=== PATIENT | male | born 1960 | race Caucasian/White ===

== ENCOUNTER 2018-12-12 10:39 | Inpatient (IN) | payer OTHER ==
[~2018-12-12] VITALS: Ht 188 cm; Wt 118.3 kg
[~2018-12-12 10:39] MED LIST: CLIN300 PO; GLIP10 PO; GLIP5 PO; HYDR1TAB94 PO; Humalog100 UNIT/1; Humalog100 UNIT/1 SC; INSULANPEN; INSULANPEN SC; LIRA0.6P; LISI5 PO; METF500 PO; METF500C PO; PIOG15 PO
[2018-12-12 11:20] LABS: Bicarbonate Venous 11.1 mmol/L (24.0-30.0); PCO2 Venous 15.4 mmHg (38-42); PO2 Venous 184 mmHg (38-42); pH Blood Venous 7.17 (7.34-7.37)
[2018-12-12 11:21] LABS: BASOPHILS ABSOLUTE AUTO 0.04 K/mm3 (0.00-0.23); BASOPHILS PERCENT AUTO 0 % (0-2); EOSINOPHILS ABSOLUTE AUTO 0.02 K/mm3 (0.00-0.68); EOSINOPHILS PERCENT AUTO 0 % (0-6); Hematocrit 55.8 % (37.0-53.0); Hemoglobin 18.2 g/dL (13.5-17.5); IMMATURE GRAN ABSOLUTE AUTO 0.07 K/mm3 (0.00-0.10); IMMATURE GRAN PERCENT AUTO 1 % (0-1); LYMPHOCYTES ABSOLUTE AUTO 1.89 K/mm3 (0.84-5.20); LYMPHOCYTES PERCENT AUTO 14 % (21-46); MONOCYTES ABSOLUTE AUTO 0.86 K/mm3 (0.16-1.47); MONOCYTES PERCENT AUTO 6 % (4-13); Mean Corpuscular HGB 28.5 pg (26.0-34.0); Mean Corpuscular HGB Conc 32.6 g/dL (31.5-36.5); Mean Corpuscular Volume 87 fL (80-100); Mean Platelet Volume 10.4 fL (9.1-12.4); NEUTROPHILS ABSOLUTE AUTO 10.54 K/mm3 (1.96-9.15); NEUTROPHILS PERCENT AUTO 79 % (41-73); Platelet Count 332 K/mm3 (150-400); RDW Coefficient Variation 13.8 % (11.7-14.2); RDW Standard Deviation 43.7 fL (35.1-46.3); Red Blood Cell Count 6.39 M/mm3 (4.30-5.90); White Blood Cell Count 13.42 K/mm3 (4.00-11.30)
[2018-12-12 11:55] LABS: Alanine Aminotransfer (ALT/SGP 14 U/L (12-78); Albumin, Blood 3.4 g/dL (3.4-5.0); Albumin/Globulin Ratio 0.7 (0.8-1.8); Alk Phos 118 U/L (50-136); Anion Gap 18 mmol/L (6-16); Aspartate Aminotrans (AST/SGOT 19 U/L (12-37); Beta-hydroxybutyrate 79.2 mg/dL (0.2-2.8); Bilirubin, Total 0.7 mg/dL (0.1-1.0); Blood Urea Nitrogen 28 mg/dL (8-24); Bun/Creatinine Ratio 39.6 (12.0-20.0); CO2, Blood 8 mmol/L (21-32); Calcium, Blood 8.9 mg/dL (8.5-10.1); Chloride, Blood 101 mmol/L (98-108); Creatinine, Blood 0.71 mg/dL (0.60-1.20); Globulin, Blood 4.7 g/dL (2.2-4.0); Glomerular Filtration Rate >60 (60-); Glucose, Blood 394 mg/dL (70-99); Potassium, Blood 4.8 mmol/L (3.5-5.5); Sodium, Blood 127 mmol/L (136-145); Total Protein, Blood 8.1 g/dL (6.4-8.2)
--- NOTE | 2018-12-12 14:00 | NUR ---
ARIVAL TO UNIT: RECEIVED REPORT FROM ED RN. SHORTLY AFTER RECEIVING REPORT PT ARRIVED ON AN INSULIN DRIP AT A RATE OF 13.2 UNITS/HR. TRANSFERED TO ICU BED WITH SBA. INSULIN PLACED ONTO ICU PUMP AND STARTED AT A RATE OF 2 UNITS/HR. BLOOD SUGAR CHECKED NOTED TO BE 236. NO ACUTE DISTRESS NOTED PT APPEARS WEAK, BUT BREATHING IS EVEN AND UNLABORED. C/O SOME ABDOMINAL PAIN, BUT NOT WITH PALPATION. DENIES NAUSEA AT TIME OF ASSESSMENT. PT EDUCATED ON THE UNIT, CALL LIGHT, FALL PERCAUTIONS, AND SO ON. WILL CONTINUE TO MONITOR AND ASS ESS FURTHER.
--- NOTE | 2018-12-12 14:20 | NUR ---
ADMISSION: ATTEMPTED TO COMPLETE MEDICATION RECONCILIATION, PT BECOMES AGITATED AND STATES HE HAS A "LIST THIS LONG" AND MOTIONS FINGERS APART ABOUT A 8X11 SIZE. PT STATES HE HASN'T TAKEN THEM IN "MONTHS", HE DOESN'T NEED THEM AND HE IS HERE FOR HIS BLOOD SUGARS BEING OUT OF "WACK" SO HE DOESN'T NEED TO TAKE ALL THOSE OTHER MEDICATIONS. PT IS COOPERATIVE, BUT DOES NOTE LIKE BEING ASKED ABOUT HIS HEALTH HISTORY. PT DENIED HAVING COPD OR PTSD ALTHOUGH UPON ENTERING ROOM WITH ANY LOUD NOISES PT APPEARS TO JUMP. WILL CONTINUE TO MONITOR AND ASSESS FURTHER.
[2018-12-12] MEDS ORDERED: GABA300 PO (14:22)
[2018-12-12 15:15] LABS: Source, Urine Clean Catch
[2018-12-12 15:17] LABS: Bilirubin, Urine Neg (Neg); Blood, Urine 1+ (Neg); Glucose Qualitative, Urine 4+ (Neg); Ketones, Urine 4+ (Neg); Leukocyte Esterase, Urine Neg (Neg); Nitrite, Urine Neg (Neg); Protein, Urine 2+ (Neg); Urobilinogen, Urine NORM (Normal)
[2018-12-12 15:26] LABS: Appearance, Urine Clear (Clear); Color, Urine Yellow (P-Yellow)
--- NOTE | 2018-12-12 15:30 | NUR ---
UPDATE TO MYLENE: NOTIFIED DR CHAKRABORTY OF INSULIN DRIP AT A RATE OF 13.2 UNITS/HR UPON ARIVAL FROM ED. UPDATED ON CURRENTLY GLUCOSE OF 191. RECEIVED NEW ORDERS TO CHANGE FLUIDS TO D5 /C 1/2 NS @ 150 ML/HR.
[2018-12-12 15:31] LABS: Bacteria Few /hpf; Squamous Epithelial Cells Not Seen /hpf (Few); White Blood Cells, Urine 0-2 /hpf (0-5)
--- NOTE | 2018-12-12 16:05 | NUR ---
GLUCOSE: D5 /C 1/2 NS WAS STARTED AT 1542 AT A RATE OF 150 ML/HR. BLOOD GLUCOSE NOTED AT 218 AT 1605. TURNED INSULIN UP TO 3 UNITS/HR.
[2018-12-12 16:55] LABS: Anion Gap 15 mmol/L (6-16); Blood Urea Nitrogen 22 mg/dL (8-24); Bun/Creatinine Ratio 35.3 (12.0-20.0); CO2, Blood 9 mmol/L (21-32); Calcium, Blood 8.2 mg/dL (8.5-10.1); Chloride, Blood 107 mmol/L (98-108); Creatinine, Blood 0.62 mg/dL (0.60-1.20); Glomerular Filtration Rate >60 (60-); Glucose, Blood 226 mg/dL (70-99); Potassium, Blood 3.8 mmol/L (3.5-5.5); Sodium, Blood 131 mmol/L (136-145)
--- NOTE | 2018-12-12 17:04 | NUR ---
SHIFT SUMMARY: NO ACUTE CHANGES NOTED WITH THE PT SINCE ARIVAL. FLUIDS WERE CHANGED AND WILL BE CHANGED AGAIN TO ADD K+ TO THE MIX DUE TO BLOOD K+ NOTED TO BE DECREASING. PT ATTEMPTED TO EAT JELLO, BUT WAS UNABLE TO FINISH IT AND STATES IT "REALLY MESSED WITH MY STOMACH". PT HAS BEEN ATEMPTING TO REST AND STATES A GENERAL C/O WEAKNESS. VSS SINCE ARIVAL. BLOOD SUGARS TRENDING DOWN PRIOR TO FLUID CHANGE, INSULIN ADJUSTMENT NEEDED FOR FLUID CHANGE TO D5 1/2 NS /C K+. WILL CONTINUE TO MONITOR AND ASSESS FURTHER.
--- NOTE | 2018-12-12 19:45 | NUR ---
ASSUMED CARE RECEIVED REPORT FROM OLIVE. PT IS ALERT AND ORIENTED X 4, BUT IS LETHARGIC. PT REPORTS NO PAIN OR NAUSEA, ONLY THAT HE "FEELS LIKE CRAP". BOTH PERIPHERAL IV SITES ARE WNL, INSULIN GTTP @ 8UNITS/HR, AND D5-1/2NS @ 200ML/HR. PT IS ON ROOM AIR. CALL LIGHT WITHIN REACH. BED LOW AND LOCKED.
[2018-12-12 20:38] LABS: Anion Gap 10 mmol/L (6-16); Blood Urea Nitrogen 17 mg/dL (8-24); Bun/Creatinine Ratio 22.9 (12.0-20.0); CO2, Blood 18 mmol/L (21-32); Calcium, Blood 8.1 mg/dL (8.5-10.1); Chloride, Blood 107 mmol/L (98-108); Creatinine, Blood 0.74 mg/dL (0.60-1.20); Glomerular Filtration Rate >60 (60-); Glucose, Blood 187 mg/dL (70-99); Potassium, Blood 3.8 mmol/L (3.5-5.5); Sodium, Blood 135 mmol/L (136-145)
[2018-12-13 01:18] LABS: Anion Gap 9 mmol/L (6-16); Blood Urea Nitrogen 12 mg/dL (8-24); Bun/Creatinine Ratio 20.7 (12.0-20.0); CO2, Blood 16 mmol/L (21-32); Calcium, Blood 7.4 mg/dL (8.5-10.1); Chloride, Blood 108 mmol/L (98-108); Creatinine, Blood 0.58 mg/dL (0.60-1.20); Glomerular Filtration Rate >60 (60-); Glucose, Blood 318 mg/dL (70-99); Potassium, Blood 4.3 mmol/L (3.5-5.5); Sodium, Blood 133 mmol/L (136-145)
--- NOTE | 2018-12-13 03:22 | NUR ---
UPDATE CHEM 7 DRAWN AT 0056 WAS DRAWN FROM THE LEFT AC, ON THE SAME SIDE AND PROXIMAL TO THE IV THAT WAS INFUSING D5-1/2NS. THE GLUCOSE LEVEL WAS 318, BUT THIS IS A FALSE HIGH. THE GTTP WAS PUT ON STANDBY DURING THE DRAW, BUT STILL THIS IS MOST LIKELY AN INACCURATE RESULT. NEXT DRAW WILL BE ON THE OPPOSITE SIDE.
[2018-12-13 04:10] LABS: BASOPHILS ABSOLUTE AUTO 0.03 K/mm3 (0.00-0.23); BASOPHILS PERCENT AUTO 0 % (0-2); EOSINOPHILS ABSOLUTE AUTO 0.17 K/mm3 (0.00-0.68); EOSINOPHILS PERCENT AUTO 2 % (0-6); Hemoglobin 15.1 g/dL (13.5-17.5); IMMATURE GRAN ABSOLUTE AUTO 0.06 K/mm3 (0.00-0.10); IMMATURE GRAN PERCENT AUTO 1 % (0-1); LYMPHOCYTES ABSOLUTE AUTO 2.75 K/mm3 (0.84-5.20); LYMPHOCYTES PERCENT AUTO 24 % (21-46); MONOCYTES ABSOLUTE AUTO 0.85 K/mm3 (0.16-1.47); MONOCYTES PERCENT AUTO 7 % (4-13); Mean Corpuscular HGB 28.9 pg (26.0-34.0); Mean Corpuscular HGB Conc 33.6 g/dL (31.5-36.5); Mean Corpuscular Volume 86 fL (80-100); Mean Platelet Volume 10.3 fL (9.1-12.4); NEUTROPHILS ABSOLUTE AUTO 7.61 K/mm3 (1.96-9.15); NEUTROPHILS PERCENT AUTO 66 % (41-73); Platelet Count 260 K/mm3 (150-400); RDW Coefficient Variation 13.8 % (11.7-14.2); RDW Standard Deviation 43.5 fL (35.1-46.3); Red Blood Cell Count 5.22 M/mm3 (4.30-5.90); White Blood Cell Count 11.47 K/mm3 (4.00-11.30)
[2018-12-13 04:27] LABS: Magnesium, Blood 1.8 mg/dL (1.6-2.4)
[2018-12-13 04:28] LABS: Alanine Aminotransfer (ALT/SGP 9 U/L (12-78); Albumin, Blood 2.7 g/dL (3.4-5.0); Albumin/Globulin Ratio 0.8 (0.8-1.8); Alk Phos 85 U/L (50-136); Anion Gap 9 mmol/L (6-16); Aspartate Aminotrans (AST/SGOT 5 U/L (12-37); Bilirubin, Total 0.4 mg/dL (0.1-1.0); Blood Urea Nitrogen 11 mg/dL (8-24); Bun/Creatinine Ratio 15.6 (12.0-20.0); CO2, Blood 20 mmol/L (21-32); Calcium, Blood 7.9 mg/dL (8.5-10.1); Chloride, Blood 108 mmol/L (98-108); Globulin, Blood 3.4 g/dL (2.2-4.0); Glomerular Filtration Rate >60 (60-); Glucose, Blood 163 mg/dL (70-99); Potassium, Blood 3.4 mmol/L (3.5-5.5); Sodium, Blood 137 mmol/L (136-145)
[2018-12-13 04:29] LABS: Total Protein, Blood 6.1 g/dL (6.4-8.2)
--- NOTE | 2018-12-13 07:15 | NUR ---
YASSUMED CARE OF PT THIS AM AWAKENS TO VERBAL STIMULI. PT IRRITABLE THIS AM, REPORTS GETTING NO SLEEP LAST NIGHT AND STATES "IM STARVING AND THEY WONT EVEN FEED ME". PT REMAINS ON 5U IV INSULIN GTT AND D5 45% SALINE AT 200ML/HR. PT. VSS THIS AM. PT. DENIES PAIN/DISCOMFORT. ABLE TO REPOSITION SELF IN BED NEEDED. NADN. CALL LIGHT IN REACH
--- NOTE | 2018-12-13 07:28 | NUR ---
SHIFT SUMMARY PT REMAINED ALERT AND ORIENTED X 4. DENIES PAIN OR NAUSEA, BUT SAYS HE "FEELS CRAPPY". CURRENT GTTPS: INSULIN 5 UNITS/HR, AND D5-1/2 NS W/ 10MEQ K+ AT 200ML/HR. GAP IS CLOSED, CO2 IS 20, SUGARS HAVE BEEN 150-190 - ALL NIGHT. PT NEEDED 2L NC FOR FIRST HALF OF NIGHT TO MAINTAIN SAT'S INTO THE 90'S. SECOND HALF OF NIGHT HE MAINTAINED SATS WITHOUT NC. PT IN BED ALL NIGHT GETTING MUCH SLEEP HE WAS ABLE TO (WHILE BEING AWOKEN EVERY HOUR). PT USES URINAL, UOP: 1625ML; WHILE HE HAD ~2.5L OF FLUID INTAKE OVER NIGHT. BLOOD PRESSURES HAVE DIPPED LOW, BUT IS POSSIBLY DUE TO POSITIONING OF ARM. BED IS LOW AND LOCKED, CALL LIGHT WITHIN REACH.
[2018-12-13 08:43] LABS: CHOL/HDL RATIO 8.3; Cholesterol 215 mg/dL (50-200); HDL Cholesterol 26 mg/dL (>39); LDL/HDL RATIO 6.2; Low Density Lipoprotein Chol 160 mg/dL (0-110); Triglycerides 143 mg/dL (30-160); Very Low Density Lipoprot Chol 28 mg/dL (6-32)
--- NOTE | 2018-12-13 09:02 | NUR ---
DR. GUNN IN TO SEE PT PT TO TRANSITION TO SUBQ INSULIN. D5 GTT AND INSULIN GTT STOPPED. LANTUS ADMIN PER DR. CABELLO. PT PROVIDED WITH BREAKFAST. NO N/V AT THIS TIME. VSS.
[2018-12-13 09:48] LABS: Anion Gap 10 mmol/L (6-16); Blood Urea Nitrogen 9 mg/dL (8-24); Bun/Creatinine Ratio 13.4 (12.0-20.0); CO2, Blood 17 mmol/L (21-32); Calcium, Blood 8.1 mg/dL (8.5-10.1); Chloride, Blood 110 mmol/L (98-108); Creatinine, Blood 0.67 mg/dL (0.60-1.20); Glomerular Filtration Rate >60 (60-); Glucose, Blood 176 mg/dL (70-99); Potassium, Blood 3.3 mmol/L (3.5-5.5); Sodium, Blood 137 mmol/L (136-145)
--- NOTE | 2018-12-13 12:12 | NUR ---
ASSUMED CARE REPORT FROM MAKAYLA MENDEZ. PATIENT IS SLEEPING. MED STATUS, NO TELE LUNCH HELD
--- NOTE | 2018-12-13 12:28 | NUR ---
PATIENT EATING LUNCH. SAYS HE FEELS VERY TIRED, BUT HE IS HUNGRY.
--- NOTE | 2018-12-13 14:18 | NUR ---
SPOT CHECKED BLOOD GLUCOSE. COVERED WITH 10 UNITS HUMALOG. WILL CHECK AGAIN BEFORE DINNER.
--- NOTE | 2018-12-13 19:12 | NUR ---
REPORT GIVEN TO MAKAYLA MUNIZ
--- NOTE | 2018-12-13 20:00 | NUR ---
ASSUMED CARE OF PT AT 1915. REPORT RECEIVED. PT PRESENTS IN BED. ALERT AND ORIENTED. PLEASANT AND COOPERATIVE WITH CARE AND ASSESSMENT. PT DOES DEMONSTRATE A VERY FLAT AFFECT. VERBAL RESPONSES IN FEW WORDS. WILL REVIEW CHART AND PLAN OF CARE FOR THIS PT.
--- NOTE | 2018-12-14 | NUR ---
PT HAD STATED HE WAS HAVING TROUBLES WITH GETTING SLEEP. CALL MADE EARLIER IN EVENING TO DR FOURNIER. ORDER RECEIVED. PT MEDICATED WITH 1 MG ATIVAN PO. PT HAS BEEN ABLE TO REST AFTERWARDS. AFFECT HAS IMPROVED SOME. WILL CONTINUE TO MONITOR PT.
[2018-12-14 03:59] LABS: BASOPHILS ABSOLUTE AUTO 0.06 K/mm3 (0.00-0.23); BASOPHILS PERCENT AUTO 1 % (0-2); EOSINOPHILS ABSOLUTE AUTO 0.21 K/mm3 (0.00-0.68); EOSINOPHILS PERCENT AUTO 2 % (0-6); Hematocrit 46.2 % (37.0-53.0); Hemoglobin 15.6 g/dL (13.5-17.5); IMMATURE GRAN ABSOLUTE AUTO 0.03 K/mm3 (0.00-0.10); IMMATURE GRAN PERCENT AUTO 0 % (0-1); LYMPHOCYTES ABSOLUTE AUTO 2.89 K/mm3 (0.84-5.20); LYMPHOCYTES PERCENT AUTO 28 % (21-46); MONOCYTES ABSOLUTE AUTO 0.77 K/mm3 (0.16-1.47); MONOCYTES PERCENT AUTO 8 % (4-13); Mean Corpuscular HGB 28.6 pg (26.0-34.0); Mean Corpuscular HGB Conc 33.8 g/dL (31.5-36.5); Mean Corpuscular Volume 85 fL (80-100); Mean Platelet Volume 11.1 fL (9.1-12.4); NEUTROPHILS ABSOLUTE AUTO 6.34 K/mm3 (1.96-9.15); NEUTROPHILS PERCENT AUTO 62 % (41-73); Platelet Count 271 K/mm3 (150-400); RDW Standard Deviation 43.3 fL (35.1-46.3); Red Blood Cell Count 5.46 M/mm3 (4.30-5.90)
[2018-12-14 04:17] LABS: Albumin, Blood 2.9 g/dL (3.4-5.0); Anion Gap 11 mmol/L (6-16); Blood Urea Nitrogen 8 mg/dL (8-24); Bun/Creatinine Ratio 13.6 (12.0-20.0); CO2, Blood 20 mmol/L (21-32); Calcium, Blood 8.5 mg/dL (8.5-10.1); Chloride, Blood 106 mmol/L (98-108); Creatinine, Blood 0.59 mg/dL (0.60-1.20); Glomerular Filtration Rate >60 (60-); Glucose, Blood 262 mg/dL (70-99); Phosphorus, Blood 1.6 mg/dL (2.5-4.9); Potassium, Blood 3.2 mmol/L (3.5-5.5); Sodium, Blood 137 mmol/L (136-145)
--- NOTE | 2018-12-14 07:50 | NUR ---
CARE ASSUMED, ASSESSMENT COMPLETED. PT RESTING IN BED WITH NO C/O, VSS. MEDICATIONS ADMINISTERED PER ORDERS, PT SITTING UP IN BED EATING BREAKFAST INDEPENDENTLY, AFFECT REMAINS FLAT, PT CALM AND APPROPRIATE. IV SALINE LOCKED. PT DENIES NEEDS OR C/O AT THIS TIME, WISHES TO GO HOME TODAY.
--- NOTE | 2018-12-14 10:51 | NUR ---
0900: BREAKFAST TOLERATED WELL, PT RESTING IN BED WITH NO C/O AT THIS TIME. 1050: DR. CHAKRABORTY IN TO SEE PT, DC ORDERS RECEIVED. PT'S SON AND DAUGHTER IN LAW AT BEDSIDE, DISCHARGE INSTRUCTIONS GIVEN REGARDING DKA, DM, AND SLIDING SCALE INSULIN ORDERS, PT AND FAMILY VERBALIZE UNDERSTANDING. IV DC'D WITH TIP INTACT, PRESSURE DRESSING APPLIED. PT DC TO HOME AT THIS TIME WITH DC INSTRUCTIONS AND BELONGINGS, GAIT STEADY UPON DISHCARGE.
--- NOTE | 2018-12-14 10:57 | NUR ---
PT'S DAUGHTER IN LAW RECEPTIVE TO DC INSTRUCTIONS AND VERBALIZES UNDERSTANDING.
== END 2018-12-14 10:54 | disposition home or self-care (01) | DRG 638 ==
LOC: ER 10:39 → ICUW 12:45 → ICUE 13:40
PROVIDERS: Internal Medicine; ADMIT Internal Medicine
DX: E13.10 Other specified diabetes mellitus with ketoacidosis without coma (principal); E87.1 Hypo-osmolality and hyponatremia; J44.9 Chronic obstructive pulmonary disease, unspecified; E86.0 Dehydration; E87.6 Hypokalemia; F17.210 Nicotine dependence, cigarettes, uncomplicated; Z79.4 Long term (current) use of insulin; Z79.84 Long term (current) use of oral hypoglycemic drugs
CPT/HCPCS: 36415; 71046; 80048; 80053; 80061; 80069; 81001; 82010; 82803; 82947; 83036; 83735; 84484; 85025; 93005; 93010; 96361; 96374; 99285-25; C9113; J1650; J1815; J2405; J7030; J7042

== ENCOUNTER 2025-05-16 14:46 | Inpatient (IN) | payer OTHER ==
[~2025-05-16] VITALS: Ht 188 cm; Wt 141.0 kg
[~2025-05-16 14:46] MED LIST changes: +GABA300 PO; +HUMALOG100 UNIT/1 SC; -Humalog100 UNIT/1 SC
[2025-05-16 15:48] LABS: Alanine Aminotransfer (ALT/SGP 16.0 U/L (12-78); Albumin, Blood 3.5 g/dL (3.4-5.0); Albumin/Globulin Ratio 0.8 (0.8-1.8); Anion Gap 9.0 mmol/L (3-11); Aspartate Aminotrans (AST/SGOT 8.0 U/L (12-37); Bilirubin, Total 0.5 mg/dL (0.1-1.0); Blood Urea Nitrogen 22.0 mg/dL (8-24); CO2, Blood 26.0 mmol/L (21-32); Calcium, Blood 10.2 mg/dL (8.5-10.1); Chloride, Blood 102.0 mmol/L (98-108); Creatinine, Blood 0.89 mg/dL (0.60-1.20); Globulin, Blood 4.4 g/dL (2.2-4.0); Glucose, Blood 247.0 mg/dL (70-99); Potassium, Blood 4.1 mmol/L (3.5-5.5); Sodium, Blood 133.0 mmol/L (136-145); Total Protein, Blood 7.9 g/dL (6.4-8.2)
[2025-05-16 15:59] LABS: BASOPHILS ABSOLUTE AUTO 0.06 K/mm3 (0.00-0.23); BASOPHILS PERCENT AUTO 1 % (0-2); EOSINOPHILS ABSOLUTE AUTO 0.17 K/mm3 (0.00-0.68); EOSINOPHILS PERCENT AUTO 1 % (0-6); Hematocrit 45.3 % (37.0-53.0); Hemoglobin 14.9 g/dL (13.5-17.5); IMMATURE GRAN ABSOLUTE AUTO 0.06 K/mm3 (0.00-0.10); IMMATURE GRAN PERCENT AUTO 1 % (0-1); LYMPHOCYTES ABSOLUTE AUTO 2.96 K/mm3 (0.84-5.20); LYMPHOCYTES PERCENT AUTO 22 % (21-46); MONOCYTES ABSOLUTE AUTO 0.72 K/mm3 (0.16-1.47); MONOCYTES PERCENT AUTO 5 % (4-13); Mean Corpuscular HGB Conc 32.9 g/dL (31.5-36.5); Mean Corpuscular Volume 82 fL (80-100); NEUTROPHILS ABSOLUTE AUTO 9.34 K/mm3 (1.96-9.15); NEUTROPHILS PERCENT AUTO 70 % (41-73); NRBC ABSOLUTE 0.00 K/mm3 (0.00-0.02); NRBC Auto 0.0 /100 WBC (0.0-0.2); Platelet Count 438 K/mm3 (150-400); RDW Coefficient Variation 14.2 % (11.7-14.2); RDW Standard Deviation 42.5 fL (35.1-46.3)
[2025-05-16] MEDS ORDERED: Ampicillin Sod/Sulbactam Sod 1.5 GM in NS 100 ML IV ONE (18:25)
[2025-05-16 18:26] LABS: Source, Urine Clean Catch
[2025-05-16 18:29] LABS: Bilirubin, Urine Neg (Neg); Color, Urine Yellow (P-Yellow); Glucose Qualitative, Urine 3+ (Neg); Ketones, Urine 1+ (Neg); Leukocyte Esterase, Urine 3+ (Neg); Protein, Urine 3+ (Neg); Specific Gravity, Urine 1.010 (1.003-1.022); Urobilinogen, Urine 1+ (Normal)
[2025-05-16 18:39] LABS: White Blood Cells, Urine 25-50 /hpf (0-5)
[2025-05-16] MEDS ORDERED: FentaNYL Citrate 50 MCG/ML 2 ML Injection IV ONE (19:00)
[2025-05-16] MEDS ORDERED: Ondansetron HCl 2 MG / ML 2ML Vial IV PRN (20:10)
[2025-05-16] MEDS ORDERED: FLU VACC TS2025-26(6MOS UP)/PF 45 MCG/0.5 ML SYRINGE IM SCH (20:10)
[2025-05-16] MEDS ORDERED: NS 1,000 ML IV SCH ×2 (20:15→21:00)
[2025-05-16] MEDS ORDERED: Albuterol 2.5 MG/3 ML VIAL INH PRN (20:30)
[2025-05-16] MEDS ORDERED: FentaNYL Citrate 50 MCG/ML 2 ML Injection IV PRN (20:30)
[2025-05-16] MEDS ORDERED: Lactobacil 2-S.Thermo-Bifido 1 1 Cap PO SCH (21:00)
[2025-05-16] MEDS ORDERED: Pantoprazole Sodium 40 MG Injection IV ONE (21:00)
[2025-05-16 21:56] VITALS: BP 161/108
[2025-05-17] MEDS ORDERED: Ampicillin Sod/Sulbactam Sod 3 GM in NS 100 ML IV SCH
[2025-05-17 04:47] LABS: BASOPHILS ABSOLUTE AUTO 0.06 K/mm3 (0.00-0.23); BASOPHILS PERCENT AUTO 1 % (0-2); EOSINOPHILS ABSOLUTE AUTO 0.15 K/mm3 (0.00-0.68); EOSINOPHILS PERCENT AUTO 1 % (0-6); Hematocrit 40.2 % (37.0-53.0); Hemoglobin 13.3 g/dL (13.5-17.5); IMMATURE GRAN ABSOLUTE AUTO 0.07 K/mm3 (0.00-0.10); IMMATURE GRAN PERCENT AUTO 1 % (0-1); LYMPHOCYTES ABSOLUTE AUTO 3.01 K/mm3 (0.84-5.20); LYMPHOCYTES PERCENT AUTO 23 % (21-46); MONOCYTES ABSOLUTE AUTO 0.88 K/mm3 (0.16-1.47); MONOCYTES PERCENT AUTO 7 % (4-13); Mean Corpuscular HGB Conc 33.1 g/dL (31.5-36.5); Mean Corpuscular Volume 82 fL (80-100); NEUTROPHILS ABSOLUTE AUTO 9.03 K/mm3 (1.96-9.15); NEUTROPHILS PERCENT AUTO 68 % (41-73); NRBC ABSOLUTE 0.00 K/mm3 (0.00-0.02); NRBC Auto 0.0 /100 WBC (0.0-0.2); Platelet Count 390 K/mm3 (150-400); RDW Coefficient Variation 14.3 % (11.7-14.2); RDW Standard Deviation 42.3 fL (35.1-46.3)
[2025-05-17 05:14] LABS: Alanine Aminotransfer (ALT/SGP 13.0 U/L (12-78); Albumin, Blood 2.8 g/dL (3.4-5.0); Albumin/Globulin Ratio 0.7 (0.8-1.8); Anion Gap 10.0 mmol/L (3-11); Aspartate Aminotrans (AST/SGOT 10.0 U/L (12-37); Bilirubin, Total 0.6 mg/dL (0.1-1.0); Blood Urea Nitrogen 18.0 mg/dL (8-24); CO2, Blood 23.0 mmol/L (21-32); Calcium, Blood 8.8 mg/dL (8.5-10.1); Chloride, Blood 107.0 mmol/L (98-108); Creatinine, Blood 0.79 mg/dL (0.60-1.20); Globulin, Blood 3.9 g/dL (2.2-4.0); Glucose, Blood 193.0 mg/dL (70-99); Potassium, Blood 3.9 mmol/L (3.5-5.5); Sodium, Blood 136.0 mmol/L (136-145); Total Protein, Blood 6.7 g/dL (6.4-8.2)
[2025-05-17 05:49] VITALS: BP 136/81
[2025-05-17] MEDS ORDERED: Pantoprazole Sodium 40 MG Injection IV SCH (06:00)
--- NOTE | 2025-05-17 06:17 | NUR ---
OUTSOLE SCHEDULER SUMMARY PT IS A NEW ADMIT FROM THE ED TONIGHT. ADMITTED FOR POSSIBLE DUODENITIS VS PERFED ABCESS. PT REPORTING SOME ABD PAIN BUT HAS DENIED NEEDING PAIN MEDS SINCE COMING TO THE FLOOR. DENIES NAUSEA. CBG CHECKS Q6, REQUIRING 1 UNIT INSULIN WITH EACH CHECK PER ORDERED SLIDING SCALE. AMPICILLIN Q6. PT FINISHED 2L NS BOLUS THAT WAS STARTED IN ED. LACTIC ACID DOWN TO 1.7 ON RECHECK. PT IS AAOX4 AND INDEPENDENT IN ROOM. VSS, VANESSA.
[2025-05-17 07:27] VITALS: BP 138/89
[2025-05-17] MEDS ORDERED: NS 1,000 ML IV SCH (10:00)
[2025-05-17 15:38] VITALS: BP 143/83
--- NOTE | 2025-05-17 17:06 | NUR ---
SHIFT NOTE: A & OX4, CALM, COOPERATIVE. VSS. DENIES NAUSEA, DENIES PAIN. TOLERATED CLEAR LIQUID DIET. IV TO RFA NS@75 CONTINUOUS, IV UNASYN PER ORDER. ABDOMEN SOFT TO PALPATION. LBM 05/16. BLOOD SUGARS AC HS, REQUIRING SLIDING SCALE COVERAGE. EVALUATED BY DR. CARRILLO.
[2025-05-17] MEDS ORDERED: Insulin Human Lispro 100 Units/ML 3ML Syringe SC SCH ×2 (17:35)
[2025-05-17 19:50] VITALS: BP 154/90
[2025-05-17] MEDS ORDERED: Insulin Glargine-Yfgn 100 Unit/mL 3 ML SYR SC SCH (21:00)
[2025-05-18 04:03] VITALS: BP 141/86
[2025-05-18 04:46] LABS: Hematocrit 39.0 % (37.0-53.0); Hemoglobin 12.8 g/dL (13.5-17.5); Mean Corpuscular HGB Conc 32.8 g/dL (31.5-36.5); Mean Corpuscular Volume 82 fL (80-100); NRBC ABSOLUTE 0.00 K/mm3 (0.00-0.02); NRBC Auto 0.0 /100 WBC (0.0-0.2); Platelet Count 376 K/mm3 (150-400); RDW Coefficient Variation 14.4 % (11.7-14.2); RDW Standard Deviation 43.1 fL (35.1-46.3)
--- NOTE | 2025-05-18 05:05 | NUR ---
PEN AND PENCIL REPAIRER SUMMARY NO ACUTE CHANGES THIS SHIFT. PT AAOX4 AND INDEPENDENT IN ROOM. PT DENIES ABD PAIN HAS HAS NO NAUSEA. TOLERATING CLEAR LIQUID DIET. CONTINUES ON IV FLUIDS AND Q6 ABX. VOIDING INDEPENDENTLY BUT HAS NOT HAD A BM TONIGHT. VSS, WCTM.
[2025-05-18 05:12] LABS: Anion Gap 9.0 mmol/L (3-11); Blood Urea Nitrogen 11.0 mg/dL (8-24); CO2, Blood 24.0 mmol/L (21-32); Calcium, Blood 9.0 mg/dL (8.5-10.1); Chloride, Blood 107.0 mmol/L (98-108); Creatinine, Blood 0.81 mg/dL (0.60-1.20); Glucose, Blood 199.0 mg/dL (70-99); Potassium, Blood 3.5 mmol/L (3.5-5.5); Sodium, Blood 136.0 mmol/L (136-145)
[2025-05-18 07:08] VITALS: BP 152/84
[2025-05-18] MEDS ORDERED: Insulin Human Lispro 100 Units/ML 3ML Syringe SC SCH ×2 (07:30→11:30)
[2025-05-18] MEDS ORDERED: LOSA25 PO (14:22)
[2025-05-18] MEDS ORDERED: LACT PO (14:22)
[2025-05-18] MEDS ORDERED: PANT40 PO (14:25)
[2025-05-18] MEDS ORDERED: AMOCLA875 PO (14:26)
--- NOTE | 2025-05-18 14:44 | NUR ---
DISCHARGE SUMMARY: PATIENT STABLE AT OR. PATIENT DENIES PAIN, DENIES NAUSEA. TOLERATED CONSISTENT CARB DIET. VSS. DISCHARGE INFORMATION GONE OVER ABOUT FOLLOW UP APPOINTMENTS, MEDCIATIONS, WHEN TO CONTACT THE MD, AND WHEN TO SEEK EMERGENT HELP. PATIENT VERBALIZED UNDERSTANDING OF USE OF INSULIN PENS, PATIENT STATED "I USE THEM ALL THE TIME." PATIENT LEFT UNIT SAFELY IN WHEELCHAIR BY FRANCOIS FREY TO FRIEND'S PRIVATE VEHICLE. PRESCRIPTIONS FAXED TO [facility].
== END 2025-05-18 14:43 | disposition home or self-care (01) | DRG 871 ==
LOC: ER 14:46 → SURS 20:09
PROVIDERS: Internal Medicine; Nurse Practitioner Acute Care; Physician Assistant; ADMIT Student in an Organized Health Care Education/Training Program
DX: A41.9 Sepsis, unspecified organism (principal); K65.1 Peritoneal abscess; E87.1 Hypo-osmolality and hyponatremia; K57.00 Diverticulitis of small intestine with perforation and abscess without bleeding; R65.20 Severe sepsis without septic shock; E11.9 Type 2 diabetes mellitus without complications; F43.10 Post-traumatic stress disorder, unspecified; F17.210 Nicotine dependence, cigarettes, uncomplicated; I10 Essential (primary) hypertension; K29.80 Duodenitis without bleeding; J44.9 Chronic obstructive pulmonary disease, unspecified; K21.9 Gastro-esophageal reflux disease without esophagitis; E66.01 Morbid (severe) obesity due to excess calories; E78.5 Hyperlipidemia, unspecified; E86.0 Dehydration; E83.52 Hypercalcemia; Z79.4 Long term (current) use of insulin
CPT/HCPCS: 36415; 74177; 76705; 80048; 80053; 81001; 82947; 83036; 83605; 83690; 85025; 85027; 87086; 87338; 94760; 96365-59; 96375; 99285-25; A9270; J0295; J1815; J2470; J3010; J7030; Q9967